=== PATIENT | female | born 1980 | race Caucasian/White ===

== ENCOUNTER → 2020-07-13 13:35 | Outpatient (CLI) | payer OTHER, SELFPAY ==
[2020-07-20 01:35] LABS: HPV APTIMA, High Risk Negative (Negative)
== END ==
PROVIDERS: Visit Provider Obstetrics & Gynecology
DX: Z12.4 Encounter for screening for malignant neoplasm of cervix (principal)
CPT/HCPCS: 87624; 88175; G0145

== ENCOUNTER → 2020-07-16 09:52 | Outpatient (CLI) | payer OTHER, SELFPAY ==
[2020-07-16 13:24] LABS: Hemoglobin A1c 5.1 % (3.8-5.6)
[2020-07-16 13:32] LABS: Cholesterol 141 mg/dL (200); Free T3 2.3 pg/mL (2.18-3.98); High Density Lipoprotein 45 mg/dL; T4 Free Direct 0.93 ng/dL (0.76-1.46); Triglycerides 58 mg/dL; Very Low Density Lipoprotein 12 mg/dL (5-40)
== END ==
PROVIDERS: Visit Provider Obstetrics & Gynecology
DX: Z13.1 Encounter for screening for diabetes mellitus (principal); E78.5 Hyperlipidemia, unspecified
CPT/HCPCS: 36415; 80061; 83036; 84439; 84443; 84481

== ENCOUNTER → 2020-07-29 13:21 | Outpatient (CLI) | payer OTHER, SELFPAY ==
--- NOTE | 2020-07-29 13:27 | BI_ITS ---
MAMMOGRAPHY - BILATERAL DIAGNOSTIC REASON FOR EXAM: Female, 40 years old. BILAT DX FOR LT BREAST PAIN X 6MO TO 1 YEAR CYCLE RELATED PERTINENT HISTORY: -NO FAM HX - NO PREV SURG''S - PAIN LT LATERAL SIDE OF BREAST TECHNIQUE: Digital bilateral breast valdemar (3D mammographic acquisition) in the CC and MLO projections. 2-D mediolateral oblique (MLO) and craniocaudad (CC) views of both breasts were obtained. CAD: Full Field Digital Mammography with Computer Added Detection was performed. COMPARISON: None. FINDINGS: Breast Composition: The breasts are extremely dense, which lowers the sensitivity of mammography. There are no dominant masses or suspicious calcifications. No other significant abnormalities are identified. BI/DIAG MAMM W/CAD, BILAT IMPRESSION: Further ultrasonographic evaluation recommended, as described above. (I) ASSESSMENT CATEGORY: BIRADS Category 0: Incomplete. Need additional imaging evaluation. A letter regarding these results will be sent to the patient by the facility within 30 days. Approximately 10% of breast cancers are not detected by mammography. A normal mammogram should not delay biopsy of a clinically suspicious abnormality. Electronically Signed: Aung Alanis, at 12:24 EDT Tel , Service support ,
--- NOTE | 2020-07-29 13:27 | US_ITS ---
STUDY: ULTRASOUND BREAST - LEFT REASON FOR EXAM: Female, 40 years old. LT BREAST PAIN TECHNIQUE: Axial and longitudinal images of the LEFT breast were performed with a high resolution ultrasound transducer. # OF IMAGES: 39 COMPARISON: MG Breast Bilateral Unread - Jul 29 2020 2:02pm FINDINGS: LEFT Breast: There is a lesion #1 in the lower outer quadrant. The lesion measures 1.1 x 1.5 x 0.6 cm in size. Clock notation: 3 o''clock position. Distance from nipple: 3 cm. Posterior Enhancement: Yes. Posterior Shadowing: None. Margins: Sharp and smooth. Echogenicity: Anechoic. Compression effect on Shape: No change. There is a lesion #2 in the retroareolar region. The lesion measures 0.4 x 1 x 0.4 cm in size. Clock notation: 12 o''clock position. Posterior Enhancement: Yes. Posterior Shadowing: None. Margins: Sharp and smooth. Echogenicity: Anechoic. Compression effect on Shape: No change. US/Breast Limited Unilateral IMPRESSION: 2 benign cysts as described above. ASSESSMENT CATEGORY: BIRADS Category 2: Benign. A letter regarding these results will be sent to the patient by the facility within 30 days. Electronically Signed: Aung Alanis, at 12:17 EDT Tel , Service support ,
== END ==
PROVIDERS: Referring Provider Obstetrics & Gynecology; Visit Provider Obstetrics & Gynecology
DX: N64.4 Mastodynia (principal)
CPT/HCPCS: 76642; 77062; 77066; G0279